=== PATIENT | male | born 1960 | race Caucasian/White ===

== ENCOUNTER 2021-07-09 09:32 | Day surgery (SDC) | payer OTHER ==
[2021-07-09] MEDS ORDERED: Sodium Chloride 0.9% 1,000 ML IV SCH (09:45)
[2021-07-09] MEDS ORDERED: Propofol 200 MG/20 ML SDV ONE ×2 (10:56→11:39)
[2021-07-09] MEDS ORDERED: fentaNYL 100 MCG/2 ML SDV ONE (10:56)
[2021-07-09] MEDS ORDERED: Midazolam 1 MG/ML 2 ML SDV ONE (10:56)
== END 2021-07-09 12:59 | disposition home or self-care (01) ==
LOC: JP.SDS 09:32
PROVIDERS: ATTEND Surgery
DX: Z12.11 Encounter for screening for malignant neoplasm of colon (principal); D12.2 Benign neoplasm of ascending colon; K57.30 Diverticulosis of large intestine without perforation or abscess without bleeding; I10 Essential (primary) hypertension; K21.9 Gastro-esophageal reflux disease without esophagitis; Z88.1 Allergy status to other antibiotic agents
CPT/HCPCS: J2250; J2704; J3010; J7030